=== PATIENT | female | born 1995 | race African-American/Black ===

== ENCOUNTER 2020-07-23 03:20 | Outpatient (CLI) | payer MEDICAID ==
[~2020-07-23] VITALS: Ht 149.9 cm; Wt 69.0 kg
[2020-07-23 04:00] VITALS: BP 119/56
[2020-07-23 04:16] LABS: AMPHETAMINE SCREEN, URINE Negative (Negative); BARBITURATE SCREEN, URINE Negative (Negative); BENZODIAZEPINE SCREEN, URINE Negative (Negative); CANNABINOID SCREEN, URINE Negative (Negative); COCAINE SCREEN, URINE Negative (Negative); METHADONE SCREEN, URINE Negative (Negative); OPIATE SCREEN, URINE Negative (Negative)
[2020-07-23 04:29] LABS: MICROSCOPIC INDICATED
== END 2020-07-23 05:00 | disposition home or self-care (01) ==
LOC: LDOP 03:20
PROVIDERS: ATTEND Obstetrics & Gynecology
DX: O26.893 Other specified pregnancy related conditions, third trimester (principal); M54.9 Dorsalgia, unspecified; Z3A.35 35 weeks gestation of pregnancy
CPT/HCPCS: 59025; 80307; 81001; 87086; 89060; Q0114